=== PATIENT | female | born 1995 | race Caucasian/White ===

== ENCOUNTER 2022-03-12 08:51 | Emergency (ER) | payer BC, OTHER ==
--- OUTSIDE RECORDS SUMMARY | 2022-03-12 08:54 | XMS REPORT | Continuity of Care Document ---
:1995 Author Organization [facility] t Address [address] [place] [address] Care Team Providers Name Role Phone Mckay BRASWELL, Corinne Riley Primary Care Physician [phone] Kathy Kenney Attending Clinician Unavailable Amina VIDEO POKER FLOORMAN-CFlakita Attending Clinician FLAKITA GERARDO Attending Clinician Unavailable CORINNE ARMENDARIZ Attending Clinician Unavailable Dori Banegas Attending Clinician Unavailable Kathy Kenney Admitting Clinician Unavailable Dori Banegas Admitting Clinician Unavailable Payers Payer Name Policy Type Policy Number Effective Date Expiration Date S ource [facility] [id number] 2020 00:00:00 [facility] [id number] 2020 00:00:00 Problems Condition Condition Condition Status Onset Resolution Last Treating Co mments Source Name Details Category Date Date Treatment Clinician Date No known No known Disease Kelse y active active Seybold problems problems Allergies, Adverse Reactions, Alerts Allergy Allergy Status Severity Reaction(s) Onset Inactive Treating Comm ents Source Name Type Date Date Clinician No Known DA Active U 2020-03 [facility] No Known DA Active U 2020-03 [facility] Social History Social Habit Start Date Stop Date Quantity Comments Source Tobacco use and 2021-06-28 2021-06-28 Smokeless tobacco Ke lsey Seybold exposure 00:00:00 00:00:00 non-user Sex Ass[birth year] At [birth year] Monika garcia 00:00:00 00:00:00 Smoking Status Start Date Stop Date Source Never smoked tobacco Monika barnett Medications Ordered Filled Start Stop Current Ordering Indication Dosage Frequency Signature Comments Components Source Medication Medication Date Date Medication? Clinician (SIG) Name Name Cetirizine Yes [id number] 10mg Take 1 Monika HCl (ZyrTEC 4-20 capsule Seybo ld Allergy) 10 00:00: (10 mg MG oral 00 total) by Capsule mouth daily FLUTICASONE Yes [id number] 50ug Use 1 Monika PROPIONATE, 4-20 spray (50 Sey bold NASAL, 50 00:00: mcg total) MCG/ACT 00 in each nasal nostril Suspension daily Immunizations Ordered Immunization Filled Immunization Date Status Commen ts Source Name Name Tdap- (Boostrix, 2021-02-06 Completed Monika saucedo Adacel) 00:00:00 Vital Signs Vital Name Observation Time Observation Value Comments Source Systolic blood pressure 2021-06-28 13:56:00 113 mm[Hg] Monika Valerio Diastolic blood 2021-06-28 13:56:00 58 mm[Hg] Arti Grahamanibal pressure Heart rate 2021-06-28 13:56:00 92 /min Monika Remy sheryl Body temperature 2021-06-28 13:56:00 37 Jeanine Roma Valerio Respiratory rate 2021-06-28 13:56:00 13 /min Roma vishnu Valerio Body height 2021-06-28 13:56:00 165.1 cm Monika saucedo Body weight 2021-06-28 13:56:00 81.012 kg Monika Remy sheryl BMI 2021-06-28 13:56:00 29.72 kg/m2 Monika saucedo Oxygen saturation in 2021-06-28 13:56:00 99 /min Monika Valerio Arterial blood by Pulse oximetry Procedures Procedure Date / Time Performed Performing Clinician Santiago araiza [id number] 2021-03-10 00:00:00 [facility] [id number] 2021-03-10 00:00:00 [facility] [id number] 2021-03-10 00:00:00 [facility] Encounters Start End Encounter Admission Attending Care Care Encounter Source Date/Time Date/Time Type Type Clinicians Facility Department ID 2021-03-11 Inpatient CRISTOFER Haywood [id number] [facility] 12:56:00 Kathy [facility] 2021-02-08 Inpatient DAMARIS Haywood OBOP [id number] [facility] 00[facility]08:00 Kathy [facility] 2020-11-23 Outpatient [facility] [id number] [place] 14:45:41 [facility] 2020-10-31 Outpatient [facility] [id number] [place] 08:29:07 [facility] 2020-10-28 Outpatient [facility] [id number] [place] 14:23:10 [facility] 2020-10-28 Outpatient [facility] [id number] [place] 14:21:32 [facility] 2021-09-13 2021-09-13 Office Carlos Gerardo [id number] Monika 16:00:00 16:30:00 Visit Flakita Kidd [id number] Se ybold [id number] 2021-06-28 2021-06-28 Office Carlos Gerardo [id number] Monika 09:00:00 09:30:00 Visit Flakita Kidd [id number] Se ybold [id number] 2021-03-10 2021-03-11 Emergency EM DAMARIS Kenney OBPP [id number] [facility] 00:09:00 13:59:00 Kathy [facility] 2021-01-31 2021-02-07 Outpatient CRISTOFER Haywood OBOP [id number] [facility] 13:53:00 00:00:00 Kathy 17 [facility] 2020-12-27 2020-12-27 Outpatient MONIKA GERARDO [id number] Monika 08:30:00 08:30:00 FLAKITA andujar 2020-12-27 2020-12-27 Outpatient MONIKA ARMENDARIZ [id number] Monika 00:00:00 00:00:00 CORINNE Paco andujar 2020-06-10 2020-06-11 Outpatient [facility] [id number] [facility] 12:24:16 04:59:59 r [facility] 2020-06-10 2020-06-10 Outpatient [facility] [id number] [place] 07:24:16 23:59:59 r maxim [place] 2020-06-10 2020-06-10 Outpatient Makenzie, [id number] 07:24:16 23:59:59 Subodhsing 8 Results Test Description Test Time Test Comments Results Result Comments Source HGB HCT 2021-03-11 07:15:00 Test Item Value Reference Range Interpretation Comme nts HEMOGLOBIN (test code = HGB) 9.2 g/dL 10.1-13.8 L HEMATOCRIT (test code = HCT) 29.7 % 32.5-41.8 L AG HEPATITIS B [id number] 01:21:00 Test Item Value Reference Range Interpretation Comments AG HEPATITIS B SURFACE (test code NONREACTIVE NONREACTIVE = HBSAG) AB HEPATITIS C [id number] 01:21:00 Test Item Value Reference Range Interpretation Comments AB HEPATITIS C (test code = NONREACTIVE NONREACTIVE HCVAB) SIGNAL TO CUTOFF (test code = <0.02 <0.80 N CUTOFF) AB [id number] 01:21:00 Test Item Value Reference Range Interpretation Comments AB TREPONEMA (test code = TREPAB) NONREACTIVE NONREACTIVE AB HIV 1 01:21:00 Test Item Value Reference Range Interpretation Comments AB HIV 1 2 (test NONREACTIVE NONREACTIVE Done by [facility] code = [id number]) 4th Gen HIV Ag/Ab Combo Screen CBC W/AUTO [id number] 23:28:00 Test Item Value Reference Range Interpretation Comments WHITE BLOOD CELL (test code = WBC) 13.3 K/mm3 6.5-12.3 H RED BLOOD CELL (test code = RBC) 4.12 M/mm3 3.51-4.69 N HEMOGLOBIN (test code = HGB) 10.2 g/dL 10.1-13.8 N HEMATOCRIT (test code = HCT) 32.7 % 32.5-41.8 N MEAN CELL VOLUME (test code = MCV) 79.4 fL 84.6-96.6 L MEAN CELL HGB (test code = MCH) 24.8 pg 27.3-33.9 L MEAN CELL HGB CONCETRATION (test 31.2 gm/dL 32.0-34.2 L code = MCHC) RED CELL DISTRIBUTION WIDTH (test 14.4 % 12.2-16.3 N code = RDW) PLATELET COUNT (test code = PLT) 337 K/mm3 134-363 N MEAN PLATELET VOLUME (test code = 9.6 fL 9.2-12.7 N MPV) NEUTROPHIL % (test code = NT%) 79.6 % 57.9-77.3 H LYMPHOCYTE % (test code = LY%) 15.4 % 14.5-29.7 N MONOCYTE % (test code = MO%) 3.9 % 3.6-10.2 N EOSINOPHIL % (test code = EO%) 0.4 % 0.0-3.0 N BASOPHIL % (test code = BA%) 0.3 % 0.1-0.9 N NEUTROPHIL # (test code = NT#) 10.6 K/mm3 LYMPHOCYTE # (test code = LY#) 2.1 K/mm3 MONOCYTE # (test code = MO#) 0.5 K/mm3 EOSINOPHIL # (test code = EO#) 0.05 K/mm3 BASOPHIL # (test code = BA#) 0.0 K/mm3 RBC MORPHOLOGY REQUIRED (test code NORMAL NORMAL = RBCM) PLATELET MORPHOLOGY REQUIRED (test NORMAL NORMAL code = PLTMR) COVID 19 Asymptomatic IH [id number] 22:57:00 Test Item Value Reference Range Interpretation Comments COVID 19 NEGATIVE NEGATIVE This test has b een Asymptomatic IH AG authorize d only for the (test code = detection ofpro teins from COVNONPUIAG) SARS-CoV-2, not for any other viruses orpathogens. Ne gative results should be treated as presumptive andconfirmed wi th a molecular assay , if necessary for patientmanageme nt. Negative result s do not rule out COVID- 19 andshould not b e used as the sole basis for treatment orpat ient management deci sions, including infec tion controldecision s. Negative result s should be considered i n thecontext of a patient's recent exposure s, history and thepresence of clinical signs and symptoms consis tent withCOVID-19. T his test has not been FD A cleared or approved; th e test hasbeen authori melisa by FDA under an Emerge ncy Use Authorization(E UA) for use by laborato analilia certified under the CLIA thatmeet the re quirements to perform mode rate, high or waivedcomple xity tests. This rayray t is authorized for use at thePoint of Car e (POC), i.e., in patien t care settingsoperati ng under a CLIA Certificat e of Waiver, Certifi emma ofCompliance, o r Certificate of Accreditation. This test is only authori zed for the duration of thedeclaration that circumstances e xist justifying theauthorizatio n of emergency use o f in vitro diagnostic test sfor detection and/o r diagnosis of CO VID-19 under Sugyzjz90 4(b)(1) of the Act, 21 U.S .C. 360bbb-3(b)(1), unless theauthorizatio n is terminated or r evoked sooner. Specimen Comment: LDO ARUPTURE OF [id number] 11:30:00 Test Item Value Reference Range Interpretation Comments RUPTURE OF MEMBRANES (test code NON-RUPTURED = ROM) URINALYSIS [id number] 11:22:00 Test Item Value Reference Range Interpretation Comments UA COLOR (test code = COLU) YELLOW YELLOW UA APPEARANCE (test code = CLOUDY CLEAR A APPU) UA GLUCOSE DIPSTICK (test code NEGATIVE NEG = DGLUU) UA BILIRUBIN DIPSTICK (test NEGATIVE NEG code = BILU) UA KETONE DIPSTICK (test code NEGATIVE NEG = KETU) UA SPECIFIC GRAVITY (test code 1.025 1.001-1.035 N = SGU) UA BLOOD DIPSTICK (test code = 2+ NEG A DANNI) UA PH DIPSTICK (test code = 5.0 5-9 JHONATAN) UA PROTEIN DIPSTICK (test code NEGATIVE NEG = PROU) UA UROBILINIOGEN DIPSTICK NEGATIVE mg/dL NEG (test code = URO) UA NITRITE DIPSTICK (test code NEG NEG = EL) UA LEUKOCYTE ESTERASE DIPSTICK NEG NEG (test code = LEUU) UA WBC (test code = WBCU) 3-5 #/hpf NONE SEEN A UA RBC (test code = RBCU) 3-5 #/hpf NONE SEEN A UA EPITHELIAL CELLS (test code RARE #/HPF RARE-FEW = EPIU) UA BACTERIA (test code = BACU) RARE /HPF RARE-FEW UA MUCUS (test code = MUCU) 4+ NONE SEEN URINE SAMPLE: CLEAN CATCH- US [id number] 00:00:00 [facility] 1995 Sex: F Patient Name: DANIELE KNOWLES Unit No: [id number] EXAMS: CPT CODE: [id number] US LTD 18757 PROCEDURE INFORMATION: Exam: US , Limited Exam date and time: 01/30/2021 11:57 AM Age: 25 years old Clinical indication: Lmp or gestational age (in weeks): 34w2d; Antepartum complications; Bleeding; ; Additional info: Spotting TECHNIQUE: Imaging protocol: Real-time ultrasound of the maternal uterus with image documentation. Exam focused on the clinical indication. COMPARISON:No relevant prior studies available. FINDINGS: FIONA (known): 03/11/2021. GA (known FIONA): 34 weeks 2 days . Presentation: Vertex. Heart rate: 123 bpm. Placenta: Anterior, grade 2 placenta with no placenta previa or abruption. Amniotic fluid: VALENTINA 15.9 cm. Cervix: 2.3 cm. Uterus: No etiology for recent spotting noted. Impression: Intrauterine gestation as above.. at 1246 Reported and signed by: Evelin Mason MD CC: Kathy Kenney MD; Marisela Suggs MD Technologist: Natali Sherman RDMS Probe: Trnscrbd D/ (1246) GCD.CPS Orig Print D/T: S: 01/30/2021 (1247) [facility] NAME: KNOWLES,DANIELE RadiologyDepartment PHYS: Marisela Baptitse MD [address] : 1995 AGE: 25 SEX: F [place] [address] LOC: [place] PHONE #: [phone] EXAM DATE: 01/30/2021 STATUS: REG ER FAX #: [phone] RAD NO: Page 1 Signed Report Patient Name: DANIELE KNOWLES Unit No: [id number] EXAMS: CPT CODE: [id number] LTD [id number] (Continued) [facility] NAME: DANIELE KNOWLES Radiology Department PHYS: Marisela Baptiste MD [address] : 1995 AGE:25 SEX: F [place] [address] LOC: [place] PHONE #: [phone] EXAM DATE: 01/30/2021 STATUS: REG ER FAX #: [phone] RAD NO: Page 2 Signed Report
[2022-03-12 09:47] LABS: Hematocrit 38.8 % (36.0-45.0); Lymphocytes % 14.9 % (15.3-44.8); MCV 81.8 fL (80-100); RBC Red Blood Cell Count 4.74 M/uL (3.86-4.86)
[2022-03-12] MEDS ORDERED: ONDANSETRON 4 MG/2 ML VIAL ONE (10:02)
[2022-03-12] MEDS ORDERED: Ringers Lactate 1,000 ML IV ONE (10:02)
[2022-03-12] MEDS ORDERED: MECLIZINE HCL 12.5 MG TAB ONE (10:02)
[2022-03-12 10:04] LABS: Albumin 3.9 g/dL (3.4-5.0); Bilirubin Total 0.3 mg/dL (0.2-1.0); Potassium 3.6 mmol/L (3.5-5.1); Troponin High Sensitivity 5.8 pg/mL (<58.9)
--- NOTE | 2022-03-12 10:46 | RAD REPORT ---
EXAM DESCRIPTION: CT - Head Brain Wo Cont - 03/12/2022 9:43 am CLINICAL HISTORY: dizziness COMPARISON: No comparisons TECHNIQUE: Axial 5 mm thick images of the head were obtained without IV contrast. All CT scans are performed using dose optimization technique as appropriate and may include automated exposure control or mA/KV adjustment according to patient size. FINDINGS: No intracranial hemorrhage, mass, edema or shift of mid-line structures. No acute infarcti on changes seen. No abnormal extra-axial fluid collections. Ventricles are normal. Mastoid air cells and visualized portions of the paranasal sinuses are clear. No acute bony findings. IMPRESSION: Negative non-contrast CT head examination.
[2022-03-12 11:21] LABS: Urine Blood Trace-intact (Negative); Urine Glucose Negative (Negative); Urine Protein Negative (Negative)
[2022-03-12] MEDS ORDERED: dexAMETHasone 10 MG/ML VIAL ONE (11:27)
--- NOTE | 2022-03-12 12:35 | ER ---
Nurse's Notes [facility] Name: Dex Carpenter Age: 26 yrs Sex: Female : 1995 Arrival Date: 03/12/2022 Time: 08:55 Bed 12 Private MD: Amol Robles Diagnosis: Vertigo Presentation: 03/12 09:19 Chief complaint: Patient states: dizziness and nausea that started after waking up this ss morning. Coronavirus screen: Client denies travel out of the [place] in the last 14 days. Ebola Screen: Patient denies exposure to infectious person. Patient denies travel to an Ebola-affected area in the 21 days before illness onset. Initial Sepsis Screen: Does the patient meet any 2 criteria? No. Patient's initial sepsis screen is negative. Does the patient have a suspected source of infection? No. Patient's initial sepsis screen is negative. Risk Assessment: Do you want to hurt yourself or someone else? Patient reports no desire to harm self or others. Onset of symptoms was March 12, 2022. 09:19 Method Of Arrival: Ambulatory ss 09:19 Acuity: CLARI 3 ss Triage Assessment: 10:45 General: Appears uncomfortable, Behavior is calm, cooperative, appropriate for age. ap3 12:45 Pain: Denies pain. ap3 12:45 GI: Reports nausea. 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 - Social history:: Smoking status: Patient denies any tobacco usage or history of. Screenin:43 Abuse screen: Denies threats or abuse. Nutritional screening: No deficits noted. ap3 Tuberculosis screening: No symptoms or risk factors identified. 12:45 [facility] ED Fall Risk Assessment (Adult) History of falling in the last 3 months, ap3 including since admission No falls in past 3 months (0 pts). Assessment: 10:45 GI: Abdomen is flat. ap3 Vital Signs: 09:19 Pulse 83; Resp 16; Pulse Ox 100% on R/A; ss 09:21 BP 123 / 83; ss 09:22 Temp 97.9(O); Pain 0/10; ss ED Course: 08:55 Patient arrived in ED. am2 08:55 Amol Robles DO is Private Physician. am2 08:55 [facility]han [facility] 08:55 Mariah Alston MD is Attending Physician. jmm 09:19 Arm band placed on right wrist. ss 09:20 Triage completed. ss 09:28 Anne Smith, JAMES is Primary Nurse. ap3 09:35 Inserted saline lock: 22 gauge in right antecubital area, using aseptic technique. rs5 Blood collected. 09:36 Troponin High Sensitivity Sent. rs5 09:36 CMP Sent. rs5 09:36 CBC with Diff Sent. rs5 09:45 CT Head Brain wo Cont In Process Unspecified. EDMS 12:34 Mariah Bonilla MD is Referral Physician. jmm 12:34 En Patel MD is Referral Physician. [facility] 12:44 No provider procedures requiring assistance completed. IV discontinued, intact, ap3 bleeding controlled, No redness/swelling at site. Pressure dressing applied. 12:45 Patient has correct armband on for positive identification. ap3 Administered Medications: 10:27 Drug: Zofran (Ondansetron) 4 mg Route: IVP; Site: right antecubital; ap3 12:46 Follow up: Response: No adverse reaction; Nausea is decreased ap3 10:27 Drug: Lactated Ringers Solution 1000 ml Route: IV; Rate: 1000 bolus; Site: right ap3 antecubital; 12:46 Follow up: IV Status: Completed infusion; IV Intake: 1000ml ap3 10:28 Drug: Meclizine 50 mg Route: PO; ap3 12:46 Follow up: Response: No adverse reaction ap3 11:32 Drug: Decadron - Dexamethasone 10 mg Route: IVP; Site: right antecubital; ap3 12:45 Follow up: Response: No adverse reaction ap3 Medication: 12:44 VIS not applicable for this client. ap3 Intake: 12:46 IV: 1000ml; Total: 1000ml. ap3 Outcome: 12:35 Discharge ordered by . [facility] 12:44 Discharged to home ambulatory, with family. ap3 12:44 Condition: good 12:44 Discharge instructions given to patient, Instructed on discharge instructions, follow up and referral plans. medication usage, Demonstrated understanding of instructions, follow-up care, medications, Prescriptions given X 2. 12:45 Patient left the ED. ap3 Signatures: Dispatcher [employer] EDMS Ryne Meehan PA PA jmm Smirch, Shelby, RN RN ss Anne Aguirre am2 Anne Smith RN RN ap3 Calvin Browning rs5
--- NOTE | 2022-03-12 12:36 | EDPHYS ---
Physician Documentation [facility] Name: Dex Carpenter Age: 26 yrs Sex: Female : 1995 Arrival Date: 03/12/2022 Time: 08:55 Bed 12 Private MD: Amol Robles ED Physician Mariah Alston HPI: 03/12 09:20 This 26 yrs old Female presents to ER via Ambulatory with complaints of Nausea, jmm Dizziness. 09:20 The patient presents to the emergency department with nausea, vomiting. Onset: The jmm symptoms/episode began/occurred acutely, last night. Possible causes: unknown. 26-year-old female with no known chronic medical conditions presents emerged part with complaints of acute onset dizziness which began last night along with multiple episodes of vomiting. Patient denies unilateral weakness. Symptoms are improved with staying still. Patient states that she did have cold-like symptoms around mid February.. 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 - Social history:: Smoking status: Patient denies any tobacco usage or history of. ROS: 12:32 Constitutional: Negative for fever, chills, and weight loss, Cardiovascular: Negative jmm for chest pain, palpitations, and edema, Respiratory: Negative for shortness of breath, cough, wheezing, and pleuritic chest pain. 12:32 Abdomen/GI: Positive for nausea and vomiting. 12:32 Neuro: Positive for dizziness. 12:32 All other systems are negative. Exam: 11:16 ECG was reviewed by the Attending Physician. jmm 12:32 Constitutional: This is a well developed, well nourished patient who is awake, alert, jmm and in no acute distress. Head/Face: atraumatic. 12:32 ENT: Moist Mucus Membranes Neck: Trachea midline, Supple Chest/axilla: Normal chest wall appearance and motion. Cardiovascular: Regular rate and rhythm. No edema appreciated Respiratory: Normal respirations, no respiratory distress appreciated Abdomen/GI: Non distended Back: Normal ROM Skin: General appearance color normal MS/ Extremity: Moves all extremities, no obvious deformities appreciated, no edema noted to the lower extremities Neuro: Awake and alert Psych: Behavior is normal, Mood is normal, Patient is cooperative and pleasant 12:32 Eyes: Nystagmus: nystagmus with fast component noted, bilaterally. 12:32 Neuro: Orientation: is normal, Mentation: is normal, Memory: is normal, Cerebellar function: normal finger to nose testing. Vital Signs: 09:19 Pulse 83; Resp 16; Pulse Ox 100% on R/A; ss 09:21 BP 123 / 83; ss 09:22 Temp 97.9(O); Pain 0/10; ss MDM: 09:20 Patient medically screened. [facility] 12:33 Data reviewed: vital signs, nurses notes. Counseling: I had a detailed discussion with pierre the patient and/or guardian regarding: the historical points, exam findings, and any diagnostic results supporting the discharge/admit diagnosis, lab results, radiology results, the need for outpatient follow up, to return to the emergency department if symptoms worsen or persist or if there are any questions or concerns that arise at home. ED course: CT and physical exam not consistent with central cause of vertigo. Patient most likely has labyrinthitis due to recent viral syndrome. Patient advised to follow-up with ENT and/or neuro for further evaluation. Symptoms have decreased in severity after the meclizine and Zofran.. 03/12 09:21 Order name: CBC with Diff; Complete Time: 09:52 [facility] 03/12 09:21 Order name: CMP; Complete Time: 10:05 [facility] 03/12 09:21 Order name: Troponin High Sensitivity; Complete Time: 10:05 [facility] 03/12 09:22 Order name: CT Head Brain wo Cont; Complete Time: 10:48 [facility] 03/12 11:22 Order name: Urine Dipstick-Ancillary; Complete Time: 11:22 [facility] 03/12 11:28 Order name: Test Urine - POC; Complete Time: 12:03 sp 03/12 09:21 Order name: EKG - Nurse/Tech; Complete Time: 09:51 [facility] 03/12 09:21 Order name: Saline Lock; Complete Time: 11:21 [facility] 03/12 09:22 Order name: Urine Dipstick-Ancillary (obtain specimen); Complete Time: 11:20 [facility] 03/12 09:22 Order name: Urine Test (obtain specimen); Complete Time: 11:20 [facility] 03/12 11:16 Order name: Misc. Order: can d/c after IVF; Complete Time: 12:12 [facility] EC:16 Rate is 64 beats/min. Rhythm is regular. QRS [place] is Normal. [place] interval is normal. QRS jmm interval is normal. QT interval is normal. No Q waves. T waves are Normal. No ST changes noted. Reviewed by me. Administered Medications: 10:27 Drug: Zofran (Ondansetron) 4 mg Route: IVP; Site: right antecubital; ap3 12:46 Follow up: Response: No adverse reaction; Nausea is decreased ap3 10:27 Drug: Lactated Ringers Solution 1000 ml Route: IV; Rate: 1000 bolus; Site: right ap3 antecubital; 12:46 Follow up: IV Status: Completed infusion; IV Intake: 1000ml ap3 10:28 Drug: Meclizine 50 mg Route: PO; ap3 12:46 Follow up: Response: No adverse reaction ap3 11:32 Drug: Decadron - Dexamethasone 10 mg Route: IVP; Site: right antecubital; ap3 12:45 Follow up: Response: No adverse reaction ap3 Disposition: 18:39 STAFF ATTESTATION STATEMENT: I was immediately available onsite in the emergency sd2 department for consultation in the care of this patient. I did not see or examine this patient. Mariah Alston MD. Disposition Summary: 03/12/22 12:35 Discharge Ordered Location: Home [facility] Condition: Stable [facility] Diagnosis - Vertigo [facility] Followup: [facility] - With: Mariah Bonilla MD - When: 2 - 3 days - Reason: Recheck today's complaints, Continuance of care, Re-evaluation by your physician Followup: [facility] - With: En Patel MD - When: 2 - 3 days - Reason: Recheck today's complaints, Continuance of care, Re-evaluation by your physician Discharge Instructions: - Discharge Summary Sheet [facility] - Labyrinthitis [facility] Forms: - Medication Reconciliation Form [facility] - Thank You Letter jmm - Antibiotic Education m - Prescription Opioid Use [facility] Prescriptions: - Meclizine 25 mg Oral Tablet - take 1 tablet by ORAL route every 8 hours As needed; 30 tablet; Refills: 0, [facility] Product Selection Permitted - ondansetron 4 mg Oral - take 4 milligrams by SUBLINGUAL route every 8 hours; 20 tablet; Refills: 0, [facility] Product Selection Permitted Signatures: Dispatcher [employer] Ryne Day PA PA jmm Smirch, Shelby, RN RN ss Prokisch, Amanda, RN RN ap3 Mariah Alston MD MD sd2
[2022-03-12 12:54] VITALS: O2SAT 100
[2022-03-12 12:57] VITALS: BP 123/83
[2022-03-12 13:01] VITALS: TEMP 97.9
--- NOTE | 2022-03-14 16:07 | EKG ---
Test Date: 2022-03-12 Test Time: 09:48:16 Histology Tech: KRISTINE MEASUREMENT RESULTS: Intervals: Rate: 64 DC: 126 QRSD: 86 QT: 398 QTc: 410 Stuart: P: 13 DC: 126 QRS: 70 T: 39 INTERPRETIVE STATEMENTS: Normal sinus rhythm with sinus arrhythmia Normal ECG No previous ECG available for comparison Electronically Signed On 03-14-22 16:05:27 CONVEYOR INSTALLER by Michael Hernandez
== END 2022-03-12 12:45 | disposition home or self-care (01) ==
LOC: ER 08:51
DX: R42 Dizziness and giddiness (principal); R11.2 Nausea with vomiting, unspecified
CPT/HCPCS: 96361; 93005; 85025; 36415; 81025; 81003; 84484; 80053; 70450; 96375; 96374; 99284; J8597; J1100; J7120; J2405